=== PATIENT | male | born 1965 | race Hispanic/Latino ===

== ENCOUNTER 2017-10-30 12:49 | Observation (INO) | payer BC ==
[~2017-10-30] VITALS: Ht 165.1 cm; Wt 96.2 kg
[2017-10-30] MEDS ORDERED: PANTOPRAZOLE 40 MG 10ML VIAL IV STA (13:24)
[2017-10-30] MEDS ORDERED: SODIUM CHLORIDE 0.9% 1000ML 1,000 ML IV SCH (13:30)
[2017-10-30] MEDS ORDERED: LORAZEPAM 1 MG TAB PO ONE (13:30)
[2017-10-30] MEDS: FAMOTIDINE 20 MG TAB PO SCH (14:45)
[2017-10-30] MEDS ORDERED: ASPIRIN 81 MG CHEW TAB PO ONE (14:45)
[2017-10-30] MEDS ORDERED: SODIUM CHLORIDE FLUSH 10 ML SYR INJ PRN (14:45)
[2017-10-30] MEDS ORDERED: LORAZEPAM 0.5 MG TAB PO PRN (14:45)
[2017-10-30 16:53] VITALS: BP 136/89
[2017-10-30 19:15] VITALS: BP 136/89
[2017-10-30 19:30] LABS: CREATINE KINASE MB 1.3 ng/mL (0-5.0)
[2017-10-30 20:00] VITALS: BP 128/81
[2017-10-30 21:32] VITALS: BP 128/81
[2017-10-31] VITALS: BP 123/67
[2017-10-31 00:51] LABS: CREATINE KINASE MB 1.1 ng/mL (0-5.0)
[2017-10-31] MEDS: FAMOTIDINE 20 MG TAB PO SCH (03:11)
[2017-10-31 04:00] VITALS: BP 123/68
[2017-10-31 05:37] LABS: CHOL/HDL RATIO 4.8 (3.9-4.7); MAGNESIUM 1.8 MG/DL (1.3-2.1); PHOSPHORUS 3.1 MG/DL (2.3-4.7)
[2017-10-31 08:00] VITALS: BP 130/68
[2017-10-31] MEDS ORDERED: ACETAMINOPHEN 325 MG TAB PO PRN (08:45)
[2017-10-31] MEDS ORDERED: ONDANSETRON HCL INJ 2 MG/ML VIAL IV PRN (08:45)
[2017-10-31] MEDS ORDERED: ASPIRIN 81 MG ENTERIC COATED PO SCH (09:00)
[2017-10-31] MEDS ORDERED: HYDROCHLOROTH12.5 MG PO (11:28)
[2017-10-31] MEDS ORDERED: ATIVAN0.5 MG PO (11:28)
[2017-10-31] MEDS ORDERED: CARAFATE1 GM PO (11:28)
[2017-10-31] MEDS ORDERED: METOCLOPRAMIDE10 MG PO (11:28)
[2017-10-31] MEDS ORDERED: PROTONIX40 MG/ML PO (11:28)
[2017-10-31] MEDS ORDERED: ASPIRIN EC81 MG PO (11:28)
[2017-10-31] MEDS ORDERED: SUCRALFATE 1 GM TAB PO SCH (11:30)
[2017-10-31] MEDS ORDERED: METOCLOPRAMIDE HCL 10 MG TAB PO SCH (11:30)
--- NOTE | 2017-10-31 11:58 | Discharge Summary ---
Mr. Lomas is a 52-year-old male admitted with chest pain and epigastric pain. Please see H\T\P for details regarding history of present illness. Past medical history includes hypertension, anxiety, morbid obesity with pannus. He has a history of cholecystectomy and tonsillectomy. The patient has essentially been ruled out for a myocardial infarction with all cardiac enzymes being negative and multiple EKGs without ST-segment elevation or depression. Patient was approached with possible plan of getting a stress test while here by a buggy ladle tender, but he states he would rather go home. ADMITTING DIAGNOSES: Include 1. Chest pain/epigastric pain. 2. Gastroesophageal reflux disease. 3. Hypertension. 4. Anxiety. 5. Hyperlipidemia. 6. Morbid obesity with pannus. 7. Family history of schizophrenia. DISCHARGE DIAGNOSES: Include 1. Chest pain/epigastric pain. 2. Gastroesophageal reflux disease. 3. Hypertension. 4. Anxiety. 5. Hyperlipidemia. 6. Morbid obesity with pannus. 7. Family history of schizophrenia. Currently the patient denies any chest pain. Review of systems negative for complaints. Disposition will be home without home health. He will not require any DME. Discharge medications will include Protonix, Reglan and Carafate, as well as hydrochlorothiazide at a low dose for hypertension. Patient has been encouraged to obtain a PCP, follow up with him, also to have his PCP refer him to a buggy ladle tender for a stress test. Activity level as tolerated. Continue cardiac diet. Dictated by: Mike Barksdale NP ILENE PUGA MD Job#: [id number]
[2017-10-31 12:02] VITALS: BP 154/99
--- NOTE | 2017-10-31 12:07 | History and Physical ---
The patient does not have a PCP. CHIEF COMPLAINT: Chest pain. HISTORY OF PRESENT ILLNESS: The patient states that about a month ago he had an episode of chest pain and epigastric pain, and did not seek medical treatment for it as it subsided. He also admits to having some dizziness at work in the past few weeks, having increased stress and going to [facility] on occasion to get his blood pressure checked, which showed an elevated blood pressure yesterday. He began having central chest pain and epigastric pain, which started about 10:30 in the morning and rated about a 4 on a scale of 0-10 without any radiation to either arm or jaw or anywhere else. It was abrupt in onset and relieved by rest. This chest pain was associated with shortness of breath and burping or belching. No vomiting or diaphoresis. Since admission, his cardiac enzymes and EKGs are within normal limits. He was seen in the intermediate care unit in room 176. PAST MEDICAL HISTORY: Includes hypertension, anxiety, morbid obesity with pannus. PAST SURGICAL HISTORY: Cholecystectomy tonsillectomy. SOCIAL HISTORY: Patient denies ever smoking. Drinks alcohol socially. He denies any illicit drug use. He lives with his fiancee. 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 ALLERGIES: NO KNOWN ALLERGIES. FAMILY HISTORY: Patient's uncle has been hospitalized in the past for schizophrenia. His father has diabetes and hypertension. His mother had ovarian cysts and uterine cancer in the past, which was successfully treated. REVIEW OF SYSTEMS GENERAL: Denies any current malaise or fatigue. Denies fever or chills. HEENT: Denies any visual complaints. No dry throat. No stuffy nose. CARDIOVASCULAR: As per history of present illness. He denies any current chest pain or epigastric pain. PULMONARY: Denies shortness of breath, cough or phlegm. ABDOMEN: Denies nausea, vomiting, diarrhea, constipation, melena. GENITOURINARY: No complaints of dysuria. MUSCULOSKELETAL: Denies any back pain or joint pain. ENDOCRINE: Denies any history of diabetes. HEMATOLOGY: Denies any bleeding or bruising. INFECTIOUS DISEASE: No known history of HIV or immunodeficiency. NEUROLOGIC: Denies any focal weakness, numbness, tingling, or seizures. PHYSICAL EXAMINATION VITAL SIGNS: Temperature 96.5, heart rate 64, blood pressure 123/68, respirations 18, oxygen saturation 98%. Height 5 feet 5 inches, weight 212 pounds, BMI of 35.27. GENERAL: The patient is a well-nourished, well-developed morbidly obese gentleman in no apparent distress. HEENT: Pupils equal, round, reactive to light. Extraocular eye movements intact. Oropharynx is clear. NECK: Supple. No lymphadenopathy. No thyromegaly. No carotid bruits. CARDIOVASCULAR: Regular rate and rhythm without murmur. Normal sinus rhythm. RESPIRATORY: Air entry bilaterally. No labored breathing. No wheezing. No crackles or rhonchi. Lung sounds clear to auscultation. ABDOMEN: Bowel sounds positive. Soft and nontender. Morbidly obese. BACK: No costovertebral angle tenderness. EXTREMITIES: No edema noted. No signs or symptoms of DVT. INTEGUMENT: Warm and dry. NEUROLOGIC: GCS 15. Cranial nerves II-XII are intact. Alert and oriented times 4 and nonfocal. PSYCHIATRIC: Mild anxiety. LABORATORY DATA: Yesterday, BMP and CBC were collected. Sodium 136, potassium 3.7, CO2 of 30, chloride 100, glucose 150. Calcium 9. BUN is 14, creatinine 1, albumin 3.7, alkaline phosphatase 93, ALT 44, AST 34, total bilirubin 0.8, and total protein 8.4. D-dimer less than 100. WBC 5.3, hemoglobin 14.5, hematocrit 45.8, and platelets 347,000. Yesterday evening at 1835, creatinine kinase 146, CK-MB 1.3, and troponin I 0.003. Then at 2250, creatinine kinase 129, CK-MB 1.1 and troponin I 0.011. This morning at 4:49, creatinine kinase 121, CK-MB 1 and troponin I 0.002. Today, phosphorus is 3.1. Magnesium 1.8. Triglycerides 130, cholesterol 215, LDL 144, HDL 45. A 12-lead EKG done at 12:57 yesterday showed sinus tachycardia with a heart rate of 102. Subsequent EKG at 1356 yesterday showed normal sinus rhythm with a heart rate of 70. Chest x-ray was done yesterday, which was negative. No previous echocardiogram noted. ASSESSMENT AND PLAN 1. Chest pain/epigastric pain: Will discuss further with Dr. Whitlock, but I think this is likely due to gastroesophageal reflux disease. It may be also associated with anxiety and stress. The patient is encouraged to get a primary care physician as he currently has none. Cardiac enzymes and electrocardiogram have been negative. Patient advised to lose weight with low glycemic index diet. Treadmill stress test would be prudent. 2. Gastroesophageal reflux disease: More than likely a cardiology consult is unnecessary at this point. Will confer with Dr. Whitlock. Patient can likely be discharged home with usual gastrointestinal meds, such as Nexium and Reglan. 3. Hypertension: Will start the patient on low-dose hydrochlorothiazide. Currently, blood pressure is 123/68. 4. 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 Patient advised to speak with his PCP regarding possible psychiatry consult if stress relieving exercises are ineffective. 5. Hyperlipidemia: Followup with PCP. 6. Morbid obesity with pannus: The patient is encouraged to begin exercise regimen and low glycemic index diet. 7. Family history of schizophrenia: Supportive care. Patient to have thyroid function checked and hemoglobin A1c, which can be done on an outpatient basis. 8. Prophylaxis: Pepcid and sequential compression devices until time of discharge. DICTATED BY LACEY ESTEVES NP Job#: [id number]
[2017-10-31] MEDS ORDERED: PANTOPRAZOLE SOD 40 MG TABEC PO SCH (16:30)
== END 2017-10-31 12:24 | disposition home or self-care (01) ==
LOC: FSED 12:49 → ERHOLD 14:45 → IMCU 16:54
PROVIDERS: ADMIT Internal Medicine; ATTEND Internal Medicine
DX: R07.89 Other chest pain (principal); R10.13 Epigastric pain; K21.9 Gastro-esophageal reflux disease without esophagitis; F41.9 Anxiety disorder, unspecified; I10 Essential (primary) hypertension; E78.5 Hyperlipidemia, unspecified; E66.01 Morbid (severe) obesity due to excess calories; Z68.35 Body mass index [BMI] 35.0-35.9, adult; E65 Localized adiposity; Z79.82 Long term (current) use of aspirin; Z81.8 Family history of other mental and behavioral disorders
CPT/HCPCS: 36415 ×2; 71045; 80053; 80061; 82550 ×2; 82553 ×2; 83735; 84100; 84484 ×2; 85025; 85379; 93005; 99284; G0378 ×2

== ENCOUNTER → 2018-10-02 | Day surgery (SDC) | payer BC ==
[~2018-10-02] MED LIST: ASPIRIN EC81 MG PO; ATIVAN0.5 MG PO; BUSPIRONE HCL5 MG PO; CARAFATE1 GM PO; CARAFATE1 GM/10 ML PO; FENTANYL CITRATE/PF 100MCG/2 ML INJ ONE; HYDROCHLOROTH12.5 MG PO; HYOSCYAMINE SULFATE 0.5 MG/ML INJ ONE; LIDOCAINE HCL 2% LOCAL INJ 5 ML SDV VIAL INJ ONE; METOCLOPRAMIDE10 MG PO; MIDAZOLAM HCL 2 MG/2 ML VIAL ONE; PANTOPRAZOLE SO40 MG PO; PROPOFOL IV EMULSION 10 MG/ML 50 ML VIAL ONE; PROTONIX40 MG/ML PO
--- NOTE | 2018-10-02 16:08 | Operative Report ---
DATE OF PROCEDURE: 10/02/2018 SURGEON: Karlos French MD PROCEDURE: EGD with biopsies and colonoscopy. INDICATIONS FOR EGD: Heartburn, bloating. INDICATIONS FOR COLONOSCOPY: Colorectal cancer screening. MEDICATIONS: The patient was done under MAC. Please see anesthesiologist's note. PROCEDURE IN DETAIL: With the patient in left lateral decubitus position, flexible fiberoptic Olympus gastroscope was introduced into the esophagus under direct visualization without any difficulty. There was some patchy erythema noted in distal esophagus. The scope was then advanced with ease into the stomach. Mucosa overlying the antrum and the body revealed some patchy erythema and low-grade to moderate edema and biopsies were obtained and sent to stain for H. pylori. The pylorus was of normal contour and shape. It was intubated with ease and the scope was advanced all the way to the second portion of the duodenum. Biopsies were obtained from the proximal second portion and the duodenal bulb to rule out sprue. The scope was then withdrawn back into the stomach and retroflexed. Mucosa overlying the fundus and cardia appeared to be within normal limits. The scope was then straightened out. It was subsequently withdrawn. The patient tolerated procedure well. IMPRESSION: 1. Distal esophagitis, mild. 2. Gastritis, biopsied, biopsies sent to stain for H. pylori. 3. Rule out sprue. PLAN: Follow up histology. Continue Protonix 40 mg one p.o. q.a.m. a.c. and Carafate 1 g p.o. a.c. t.i.d. and at bedtime. The patient was then turned around. After adequate lubrication of the anal canal, a flexible fiberoptic Olympus colonoscope was inserted into the rectum with ease and advanced all the way to the cecum. It was then withdrawn slowly. Mucosa overlying the cecum, ascending colon, transverse colon, and descending colon appeared to be within normal limits. Some diverticular disease was noted in the sigmoid colon. The rectum appeared to be within normal limits. The scope was then retroflexed into the distal rectum and small internal hemorrhoids were noted, none of which was actively bleeding. The scope was then straightened out. It was subsequently withdrawn. The patient tolerated the procedure well. IMPRESSION: 1. Diverticulosis. 2. Internal hemorrhoids, none actively bleeding. PLAN: Initiate high-fiber, low-fat diet. Initiate high-fiber supplement. The patient might benefit from a followup colonoscopy in 10 years. MD RICKIE Kramer/BAM /[id number] cc: Afshin Mcconnell MD
--- OUTSIDE RECORDS SUMMARY | 2018-10-04 17:37 | XMS REPORT | Continuity of Care Document ---
Author Author [facility] Interface Address Unknown Phone Unavailable Problems Problem Status Onset Date Classification Date Reported Comments Source Allergic rhinitis 05/18/2017 Diagnosis 05/19/2017 [facility] Allergic cough 05/18/2017 Diagnosis 05/19/2017 [facility] Elevated blood-pressure reading without diagnosis of hypertension 05/18/2017 Diagnosis 05/19/2017 [facility] Body mass index 30+ - obesity 05/18/2017 Diagnosis 05/19/2017 [facility] Medications Medication Details Route Status Patient Instructions Ordering Provider Order Date Source benzonatate 200 MG Oral Capsule benzonatate 200 mg capsule Take 1 capsule 3 times a day by oral route as needed. Active [facility] Allergies, Adverse Reactions, Alerts Substance Category Reaction Severity Reaction type Status Date Reported Comments Source Immunizations Immunization Date Given Site Status Last Updated Comments Source Results Order Name Results Value Reference Range Date Interpretation Comments Source Influenza A negative 05/18/2017 [facility] Influenza B negative 05/18/2017 [facility] Vital Signs Vital Sign Value Date Comments Source Diastolic (mm Hg) 100 05/18/2017 [facility] Height 66 05/18/2017 [facility] Systolic (mm Hg) 145 05/18/2017 [facility] Weight 200 05/18/2017 [facility] Encounters Location Location Details Encounter Type Encounter Number Reason For Visit Attending Provider ADM Date DC Date Status Source [place] - [facility] - [id number] Bradley, [facility]: [address] [place] [address], Ph. [id number] Bina Bradley 05/18/2017 [facility] Procedures Procedure Code Date Perfomer Comments Source Cholecystectomy [facility]
--- OUTSIDE RECORDS SUMMARY | 2018-10-04 17:37 | XMS REPORT | Encounter Summary ---
Author Organization Unknown Address [address] [place] [id number] Phone [phone] Reason for Visit Medical Complaint Instructions 1. Allergic rhinitis allergies: care instructions rapid flu (A+B) 2. Allergic cough benzonatate 200 mg capsule 3. Elevated blood-pressure reading without diagnosis of hypertension 4. Body mass index 30+ - obesity Discussion Note Pt is in NAD; Verbalizes understanding of all instructions with no questions at this time. Plan of Care Patient Instructions Take fluticasone as needed for congestion. [place] one spray in each nostril twice a day. Take a warm, steamy shower, blow your nose thereafter, and spray in each nostril. Tilt your head up for about 10 seconds and breath through your mouth. Do not sniff or snort the medication in or else the medication will go to your throat and not be absorbed appropriately. Take Benzonatate for cough as directed. Alternate with Ibuprofen and acetaminophen every 4hrs as needed for pain/fever/headache. Proper hydration and rest. Return to work/school if free of fever for 24-hrs. Do not share any utensils/cups, no kissing, recommend hand washing after coughing/sneezing/blowing nose and cover face when you do so. Take medications as prescribed. Return to clinic or follow up with your PCP within 2- 3 days if symptoms worsen as discussed. Recommend monitor BP at home and document, bring BP log to PCP for review. Recommend follow a low sodium/fat and carb diet and exercise 30-45 mins/d 3-4 days a week. Reminders Provider Appointments None recorded. Lab Rapid Flu (A+B) 05/18/2017 [facility] Referral None recorded. Procedures None recorded. Surgeries None recorded. Imaging None recorded. Medications Name Start Date benzonatate 200 mg capsule Take 1 capsule 3 times a day by oral route as needed. Medications Administered None recorded. Vitals Height Weight BMI Blood Pressure 5 ft 6 in 200 lbs 32.3 kg/m2 (1) 150/100 mm[Hg] (2) 145/100 mm[Hg] Lab Results Date Name Specimen Result Interpretation Description Value Range Status Address Rapid Flu (A+B) Influenza a negative [facility]: [address] [place] [address] Influenza B negative [facility]: [facility] Allergies Code Code System Name Reaction Severity Status Onset NKDA Problems None recorded. Procedures Date Name Performed by Cholecystectomy Information not available Vaccine List None recorded. Social History Smoking Status Never Smoker Past Encounters 05/18/2017 Allergic Rhinitis; Allergic Cough; Elevated Blood-pressure Reading without Diagnosis of Hypertension; Body Mass Index 30+ - Obesity Bina Kirk, [facility]: [address] [place] [address], Ph. History of Present Illness [id number]-Lowrdia Reported By: Patient HPI: Location: head/sinuses, chest. Quality: nasal/sinus congestion, dry cough. Duration: ; x 2 weeks. Severity: moderate. Onset/Timing: gradual. Context: no sick contacts, no foreign travel, non-smoker; Pt has elevated BP today in clinic. He reports he has "white coat syndrome". He has family h/o HTN. Associated Symptoms: no sputum production, no shortness of breath, no wheezing, no change in number of pillows needed to sleep at night, no sweats, no significant weight gain, no significant weight loss, no morning cough, no sore throat, no vomiting, no diarrhea, no rash, no nausea, no fever, no muscle aches, no headache; nasal congestion, rhinorrhea, chest congestion, and dry cough Review of Systems:ROS as noted in the HPI Review of Systems Basic Reported By: Patient Physical Exam Adult Basic, 14-21 Yr Male, Adult Female Complete, Adult Male Complete Reported By: Patient Constitutional: General Appearance: obese. Level of Distress: NAD. Ambulation: ambulating normally Psychiatric: Mental Status: active and alert. Orientation: to time, to place, to person Xra-Cldr-Odoah-Throat: Ears: no lesions on external ear, no outer ear tenderness, EACs clear, TMs clear. Hearing: no hearing loss. Nose: no lesions on external nose, nares patent, no septal deviation, nasal passages clear, no sinus tenderness, nasal discharge--rhinorrhea, post nasal drip; pale and edematous nasal turbinates bilaterally. Lips, Teeth, and Gums: no mouth or lip ulcers, no bleeding gums, normal dentition. Oropharynx: moist mucous membranes, no erythema, no exudates, tonsils not enlarged Neck: Lymph Nodes: no cervical LAD Lungs: Respiratory effort: no dyspnea, no tachypnea, no use of accessory muscles, no intercostal retractions. Auscultation: breath sounds normal Cardiovascular: Heart Auscultation: RRR, no murmurs Neurologic: Gait and Station: normal gait, normal station
== END | disposition home or self-care (01) ==
LOC: OR 08:51
PROVIDERS: ATTEND Internal Medicine Gastroenterology
DX: K59.00 Constipation, unspecified (principal); K29.50 Unspecified chronic gastritis without bleeding; B96.81 Helicobacter pylori [H. pylori] as the cause of diseases classified elsewhere; K20.9 Esophagitis, unspecified; K21.9 Gastro-esophageal reflux disease without esophagitis; K57.30 Diverticulosis of large intestine without perforation or abscess without bleeding; K64.8 Other hemorrhoids; I10 Essential (primary) hypertension; F41.9 Anxiety disorder, unspecified; Z01.810 Encounter for preprocedural cardiovascular examination; Z68.33 Body mass index [BMI] 33.0-33.9, adult
CPT/HCPCS: 43239; 45378; 93005; J1980; J2001; J2250; J2704

== ENCOUNTER → 2021-05-31 | Outpatient (CLI) | payer BC ==
[~2021-05-31] MED LIST changes: -FENTANYL CITRATE/PF 100MCG/2 ML INJ ONE; -HYOSCYAMINE SULFATE 0.5 MG/ML INJ ONE; -LIDOCAINE HCL 2% LOCAL INJ 5 ML SDV VIAL INJ ONE; -MIDAZOLAM HCL 2 MG/2 ML VIAL ONE; -PROPOFOL IV EMULSION 10 MG/ML 50 ML VIAL ONE
== END ==
LOC: RAD 14:32
PROVIDERS: ATTEND Internal Medicine
DX: M54.6 Pain in thoracic spine (principal); M54.50 Low back pain, unspecified
CPT/HCPCS: 72072; 72110